=== PATIENT | female | born 1990 | race Caucasian/White ===

== ENCOUNTER 2016-11-07 14:47 | Day surgery (SDC) | END 2016-11-07 22:20 | disposition home or self-care (01) | DX: S61.411A Laceration without foreign body of right hand, initial encounter (principal); S56.221A Laceration of other flexor muscle, fascia and tendon at forearm level, right arm, initial encounter; S56.125A Laceration of flexor muscle, fascia and tendon of right ring finger at forearm level, initial encounter; S56.127A Laceration of flexor muscle, fascia and tendon of right little finger at forearm level, initial encounter; S64.21XA Injury of radial nerve at wrist and hand level of right arm, initial encounter; W25.XXXA Contact with sharp glass, initial encounter; Y93.9 Activity, unspecified; Y99.9 Unspecified external cause status; Y92.9 Unspecified place or not applicable | CPT/HCPCS: 25260; 64910; 84703; J0131; J0690; J1100; J1885; J2270; J2405; J2765; J2795; J3010; Z7512; Z7610 ==

== ENCOUNTER 2018-09-03 13:44 | Day surgery (SDC) | payer OTHER ==
[~2018-09-03] VITALS: Ht 160 cm; Wt 79.0 kg
[2018-09-03] VITALS (18 sets, daily range): BP systolic 125–154; BP diastolic 64–81; PULSE 68–104; RESP 13–21; Ht 160 cm; Wt 79.0 kg
[~2018-09-03 13:44] MED LIST: CEFAZOLIN 2 GM/50 ML (PMX) 50 ML IVPB ONE; LACTATED RINGER'S 1,000 ML IV SCH
--- NOTE | 2018-09-03 14:39 | HPN ---
Date/Time of Note Date/Time of Note DATE: 09/03/18 TIME: 14:39 Interval H&P Admission Note Pt. seen H&P reviewed: No system changes YASMEEN KESSLER Sep 03, 2018 14:39
[2018-09-03] MEDS ORDERED: BUPIVACAINE 0.5% (SDV) 30 ML INJ ONE (16:01)
[2018-09-03] MEDS ORDERED: POLYMYXIN/BACITRACIN 1L IRRIG ONE (16:01)
[2018-09-03] MEDS ORDERED: LIDOCAINE 1% (MPF) 30 ML INJ ONE (16:01)
--- NOTE | 2018-09-03 16:06 | PREAC ---
Date/Time of Note Date/Time of Note DATE: 09/03/18 TIME: 16:05 Anesthesia Eval and Record Evaluation Time Pre-Procedure Interview DATE: 09/03/18 TIME: 16:05 Age 27 Sex female NPO: 8 hrs Preoperative diagnosis distal radius fracture Planned procedure ORIF radius Past Medical History Past Medical History: Includes GI: Obesity Surgery & Anesthesia Issues No known issue Meds Anticoagulation: No Beta Nba within 24 hr: No Reason Beta Nba not given: Pt. not on B-Nba No Active Prescriptions or Reported Meds Current Medications Lactated Ringer's 1,000 ml @ 0 mls/hr Q0M IV ; Start 09/03/18 at 06:00; Stop 09/03/18 at 18:00 Meds reviewed: Yes Allergies Coded Allergies: No Known Allergies (Verified Allergy, Mild, 09/03/18) Allergies Reviewed: Yes Labs/Studies Labs Reviewed: Reviewed by anesthesiologist test: Negative Pre-procedure Exam Last vitals Vital Signs Date Temp Pulse Resp B/P (MAP) Pulse Ox O2 O2 Flow FiO2 Time Delivery Rate 09/03/18 98.0 68 19 128/79 100 Room Air 14:49 (95) Airway: Adequate mouth opening, Adequate thyromental dist Mallampati: Mallampati I Teeth: Normal Lung: Normal Heart: Normal ASA Physical Status ASA physical status: 1 Emergency: None Pre-operative Attestations Prior to commencing anesthesia and surgery, the patient was re-evaluated, there was verification of: *The patient's identity *The results of appropriate recent lab work and preoperative vital signs *The above evaluation not changing prior to induction *Anesthetic plan, risk benefits, alternative and complications discussed with patient/family; questions answered; patient/family understands, accepts and wishes to proceed. TAMRA TAMEZ DO Sep 03, 2018 16:06
[2018-09-03] MEDS ORDERED: ROPIVACAINE 0.5 % 30 ML VIAL ONE (16:09)
[2018-09-03] MEDS ORDERED: LIDOCAINE 2% (SDV) 5 ML INJ ONE (16:09)
[2018-09-03] MEDS ORDERED: DEXAMETHASONE 4 MG/ML 5 ML INJ ONE ×2 (16:09→16:46)
[2018-09-03] MEDS ORDERED: MIDAZOLAM 1 MG/ML 2 ML INJ ONE (16:09)
[2018-09-03] MEDS ORDERED: FENTAnyl 50 MCG/ML VIAL ONE ×2 (16:09→17:07)
[2018-09-03] MEDS ORDERED: PROPOFOL 20 ML ONE (16:09)
[2018-09-03] MEDS ORDERED: OXYCODONE/ACETAMINOPHEN (5/325) TAB PO PRN ×2 (16:30)
[2018-09-03] MEDS ORDERED: HYDROmorphONE 1 MG/5 ML IV SYRINGE IV PRN ×3 (16:30)
[2018-09-03] MEDS ORDERED: ONDANSETRON 4 MG INJ ONE ×2 (16:46→18:52)
[2018-09-03] MEDS ORDERED: CEFAZOLIN 1 GM INJ ONE (16:46)
[2018-09-03] MEDS ORDERED: BUPIVACAINE 0.5% (SDV) 30 ML INJ INJ ONE (17:10)
[2018-09-03] MEDS ORDERED: ONDANSETRON 4 MG INJ IV STA (18:49)
[2018-09-03] MEDS ORDERED: MEPERIDINE 25 MG INJ ONE (18:52)
--- NOTE | 2018-09-03 18:58 | OPPN ---
Date/Time of Note Date/Time of Note DATE: 09/03/18 TIME: 18:57 Operative Report Preoperative Diagnosis Right distal radius fracture, intra-articular, greater than three fragments Right carpal tunnel syndrome Postoperative Diagnosis Right distal radius fracture, intra-articular, greater than three fragments Right carpal tunnel syndrome Operation/Procedure Performed ORIF Right distal radius fracture, intra-articular, greater than three fragments Right carpal tunnel release, open Surgeon see signature line certified ophthalmic assistant none Anesthesia: general Estimated blood loss: 0 - 10 ml's Transfusion Required none Specimen none Grafts/Implants none Complications none YASMEEN KESSLER Sep 03, 2018 18:57
[2018-09-03] MEDS ORDERED: MEPERIDINE 25 MG INJ IV ONE (19:00)
--- NOTE | 2018-09-04 02:38 | OPR ---
DATE OF OPERATION: 09/03/2018 SURGEON: Yasmeen Beltran MD ANESTHESIA: Peripheral nerve block plus general. PREOPERATIVE DIAGNOSES: 1. Right distal radius fracture, intraarticular, greater than 3 fragments. 2. Right carpal tunnel syndrome. POSTOPERATIVE DIAGNOSES: 1. Right distal radius fracture, intraarticular, greater than 3 fragments. 2. Right carpal tunnel syndrome. PROCEDURE: 1. Open reduction and internal fixation right distal radius fracture, intraarticular, greater than 3 fragments. 2. Right carpal tunnel release, open. 3. Lengthening of the brachioradialis tendon at the right wrist. OPERATIVE FINDINGS: Subacute right distal radius fracture with intraarticular extension and callus f ormation with a very small distal articular fragment and swelling at the carpal canal. INDICATION FOR PROCEDURE: A 27-year-old female with injury to the right wrist, who was seen in [facility] and diagnosed with a displaced distal radius fracture. We discussed the options. The patient elec tessa to proceed with surgical intervention, understanding the risks and benefits. DESCRIPTION OF PROCEDURE: The patient was seen in the preoperative area. All further questions were answered. Again, she gave informed consent, understands the risks and benefits. She was taken to [facility] operative suite and placed in supine position. A peripheral nerve block was performed by the [facility] and the patient was placed under general anesthesia. Tourniquet placed on the right uppe r extremity and the right upper extremity was prepped with ChloraPrep stick and draped in the usual s terile fashion. Ancef 2 grams IV was given and Esmarch bandage was used to exsanguinate the extremit y and tourniquet inflated to 250 mmHg. Attention was first turned to the distal radius fracture and a modified volar Harpreet approach to the distal radius was utilized with sharp dissection and carried d own through skin and subcutaneous tissue. The FCR sheath was incised and the FCR tendon retracted ul narly. The FCR subsheath incised and the FPL tendon retracted ulnarly. The fracture was identified and there was significant callus formation and shortening of the fracture. Attention was first turne d to mobilizing the fracture fragments. A 15-blade knife was used to find the fracture line and this was done circumferentially. I was unable to gain mobilization from the volar aspect and decision wa s made to open up the dorsal wrist and mobilize the fracture fragments more dorsally. A dorsal appro ach to the wrist was utilized with sharp dissection carried down through skin and subcutaneous tissue . The EPL sheath was incised and the EPL tendon retracted. The fracture site was identified dorsall y and a 15-blade knife was used to mobilize the fracture fragments on the dorsal aspect. I was able to mobilize the fracture into a more anatomic position with added length, but there was radial displa cement. A lengthening of the brachioradialis tendon was performed with a 15-blade knife and Bovie el ectrocautery. The brachioradialis was elevated off the radial aspect of the distal fracture fragment achieving a lengthening of the tendon. The fracture was then reduced into a more anatomic position. A [employer] volar distal radius plate was placed across the fracture site and cortical and locking s crews were placed proximally and distally. X-ray imaging showed appropriate hardware placement and b catherine alignment. However, given the small distal articular fragment, there was still some instability at the fracture site after volar plating. Decision was made to dorsally plate as well to provide add ed stability. A [employer] L-type plate was placed across the dorsal distal radius and the most distal L hole within the plate was cut to contour the plate appropriately. The plate was bent to form to t he distal radius and cortical and locking screws were placed proximally and distally. X-ray imaging showed appropriate hardware placement and bony alignment. The wound was copiously irrigated and skin closed with 5-0 nylon. Attention was turned to the carpal tunnel release and a 2 cm incision at the base of the palm was utilized with sharp dissection carried down through skin and subcutaneous tissu e. The palmar aponeurosis was incised along its ulnar border and retractors were deepened. The phelps sverse carpal ligament was incised along its ulnar border approximately 3 mm radial to the hook of th e hamate. Retractor was placed proximally and distally and the proximal and distal extents of the tr ansverse carpal ligament were divided under direct visualization. The wound was copiously irrigated. Skin closed with 5-0 nylon. Xeroform was placed over the wounds, followed by sterile gauze, Webril , and a short arm splint. Tourniquet was deflated after 85 minutes and the patient was awakened from anesthesia. She was taken the postoperative suite in stable condition, tolerated the procedure well without complication. SPECIMENS: None. ESTIMATED BLOOD LOSS: 5 mL. COUNTS: Sponge, instrument, and needle counts correct. TOURNIQUET TIME: 85 minutes. CONDITION ON DISCHARGE: Stable. The patient was given a nonrefillable 5-day prescription for pain medication for her surgeries today. STATEMENT ON COMPLEXITY: Please note that this surgery required additional complexity time, technica l skill, and work compared to a standard distal radius fracture. There was increased time associated with the surgical fixation due to the subacute nature of the fracture, as well as a very small dista l fragment. The fracture fixation required both volar and dorsal plating, as well as circumferential dissection of the fracture in order to get the fracture into a more anatomic position. Without adde d time and technical attention, it would have been difficult to achieve a satisfactory result. Dictated By: YASMEEN HAQ/TATA Conf#: [id number] DID#: [id number]
== END 2018-09-03 20:20 | disposition home or self-care (01) ==
LOC: SDS 13:44
PROVIDERS: ATTEND Orthopaedic Surgery Hand Surgery
DX: S52.571A Other intraarticular fracture of lower end of right radius, initial encounter for closed fracture (principal); G56.01 Carpal tunnel syndrome, right upper limb; E66.9 Obesity, unspecified; X58.XXXA Exposure to other specified factors, initial encounter; Y93.89 Activity, other specified; Y92.89 Other specified places as the place of occurrence of the external cause; Y99.8 Other external cause status
CPT/HCPCS: 25609; 64721; 73110; J0690; J1100; J1170; J2175; J2250; J2405; J2795; J3010; Z7610; C1713